=== PATIENT | male | born 1990 | race Caucasian/White ===

== ENCOUNTER 2024-01-18 15:34 | Emergency (ER) | payer BC, SELFPAY ==
--- NOTE | ~2024-01-18 | XR_ITS ---
XR shoulder LT min 2V 01/18/2024 16:20 Indication: Left shoulder pain Procedure: 4 views left shoulder Comparison: No prior studies for comparison. Findings: No fracture or subluxation. There is anatomic alignment. No soft tissue abnormality. No for eign bodies. Impression: 1: No acute bone or joint abnormality. Reviewed, dictated and finalized at location A. Impression: 1: No acute bone or joint abnormality.
[2024-01-18 15:49] VITALS: BP 140/97; PULSE 72; RESP 16; TEMP 36.3; O2SAT 99
--- NOTE | 2024-01-18 16:35 | ED.UPPEXIN ---
HPI - Extremity Injury (Upper) General Chief Complaint: Extremity Injury, Upper Stated Complaint: shoulder pain Time Seen by Provider: 01/18/24 15:55 History of Present Illness HPI narrative: 36-year-old male presents to the emergency room for acute onset of left shoulder pain. Patient states that he abruptly picked up a 20 lb object with his left shoulder aching abduct up. Patient states that he immediately experienced a pulling and sharp sensation in his shoulder. States pain is worse with range of motion exercises. Is unable to lift his arm up over his head or his arm behind his back. No history of shoulder injuries. Review of Systems Review of Systems: CONSTITUTIONAL: Denies fever, chills, or sweats. EYES: Denies visual changes, redness, or discharge. ENT: Denies rhinorrhea, congestion, sore throat, or otalgia. CARDIOVASCULAR: Denies chest pain, palpitations, or edema. RESPIRATORY: Denies cough or dyspnea. GASTROINTESTINAL: Denies abdominal pain, nausea, vomiting, or diarrhea. GENITOURINARY: Denies dysuria or hematuria. SKIN: Denies rash or itching. MUSCULOSKELETAL: Reports left shoulder pain NEUROLOGIC: Denies headache, numbness, dizziness, or weakness. PSYCHIATRIC: Denies anxiety or depression. Exam Narrative: GENERAL: Well-appearing, well-nourished, no physical limitations, and in no acute distress. HEAD: Normocephalic, atraumatic. EYES: Conjunctivae normal, PERRLA and EOMI. CHEST: Clear to auscultation. No respiratory distress. No wheezes rales or rhonchi. No tenderness. Cardio: RRR BACK: No cervical/thoracic/lumbar tenderness, step-offs, bony abnormality; FROM EXTREMITIES: Left shoulder: +TTP to the supraclavicular surface, No bony tenderness to clavicle or scapula. Pain with extension and abduction, + Liz Arias SKIN: Warm, dry, no rash. No noted wounds, NEURO: No focal deficits. Alert and oriented x3. MAEW. CN's II-XI intact bilaterally, normal gait PSYCH: Cooperative. Normal mood and affect. Course Vital Signs Vital signs: Vital Signs Temperature 36.3 C L 01/18/24 15:49 Pulse Rate 72 01/18/24 15:49 Respiratory Rate 16 01/18/24 15:49 Blood Pressure 140/97 H 01/18/24 15:49 Pulse Oximetry 99 01/18/24 15:49 Temperature 36.3 C L 01/18/24 15:49 Pulse Rate 72 01/18/24 15:49 Respiratory Rate 16 01/18/24 15:49 Blood Pressure 140/97 H 01/18/24 15:49 Pulse Oximetry 99 01/18/24 15:49 MDM - Extremity Injury (Upper) MDM Narrative Medical decision making narrative: Imaging of the left shoulder shows no acute bony abnormality. Patient likely experienced a shoulder strain. Will place patient in a sling and provide NSAIDs and a muscle relaxer. Discharge Plan Discharge Clinical Impression: Left shoulder strain Qualifiers: Encounter type: initial encounter Qualified Code(s): S46.912A - Strain of unspecified muscle, fascia and tendon at shoulder and upper arm level, left arm, initial encounter Patient Disposition: Home, Self-Care Condition: Stable Instructions: Antibiotic Form, Rotator Cuff Injury (ED), Rotator Cuff Injury Exercises (DC) Prescriptions: New naproxen 500 mg tablet 500 mg PO BID Qty: 20 0RF methocarbamol 750 mg tablet 750 mg PO TID Qty: 20 0RF Follow-up/Referrals: Jelani Domínguez MD [Physician] - PHYSICIAN,[employer] [Non-Staff] - Time of Disposition: 16:41
== END 2024-01-18 17:00 | disposition home or self-care (01) ==
PROVIDERS: Emergency Provider Nurse Practitioner Family
DX: S46.912A Strain of unspecified muscle, fascia and tendon at shoulder and upper arm level, left arm, initial encounter (principal); X50.0XXA Overexertion from strenuous movement or load, initial encounter
CPT/HCPCS: 73030; 99283; A4565